=== PATIENT | female | born 1960 | race Hispanic/Latino ===

== ENCOUNTER 2020-02-22 13:38 | Observation (INO) | payer BC ==
[~2020-02-22] VITALS: Ht 162.6 cm; Wt 56.7 kg
[2020-02-22] MEDS ORDERED: SODIUM CHLORIDE 0.9% 1000ML 1,000 ML IV STA ×2 (14:32→16:24)
[2020-02-22] MEDS ORDERED: ONDANSETRON HCL INJ 2MG/ML 2ML 2 MG/ML VIAL IV NR (14:45)
[2020-02-22 15:24] LABS: BASOPHILS % 1.8 % (0.0-1.0); EOSINOPHILS % 0.6 % (0.0-6.0); HEMATOCRIT 25.9 % (34.2-44.1); HEMOGLOBIN 9.2 g/dL (12.0-16.0); LYMPHOCYTES # (AUTO) 0.4 (1.0-3.2); LYMPHOCYTES % 21.4 % (18.0-39.1); MEAN CORPUSCULAR HEMOGLOBIN 38.5 pg (28-32); MEAN CORPUSCULAR HGB CONC 35.5 g/dL (31-35); MEAN CORPUSCULAR VOLUME 108.4 fL (81-99); MONOCYTES # (AUTO) 0.1 (0.2-0.8); MONOCYTES % 6.5 % (4.4-11.3); NEUTROPHILS # (AUTO) 1.2 (2.1-6.9); NEUTROPHILS % 69.7 % (38.7-80.0); PLATELET COUNT 85 x10e3/uL (140-360); RED BLOOD COUNT 2.39 x10e6/uL (3.6-5.1); RED CELL DISTRIBUTION WIDTH 14.9 % (11.7-14.4)
--- NOTE | 2020-02-22 15:24 | Diagnostic Imaging Report ---
Examination: Single AP view of the chest. COMPARISON: None. INDICATION: Weakness, low blood pressure IMPRESSION: 1. Lines and Tubes: Right upper chest Port-A-Cath, with distal tip projecting in the mid to distal SVC. 2. Lungs are grossly clear. No consolidation or effusion. 3. Cardiomediastinal silhouette is normal. Pulmonary vasculature is normal. 4. No acute bony abnormalities. Signed by: Dr. Tee Fair M.D. on 02/22/2020 3:21 PM
[2020-02-22 15:38] LABS: INR 0.86; PARTIAL THROMBOPLASTIN TIME 26.6 seconds (23.8-35.5); PROTHROMBIN TIME 12.2 seconds (11.9-14.5)
[2020-02-22 15:46] LABS: ALANINE AMINOTRANSFERASE 18 IU/L (0-55); ALBUMIN 3.9 g/dL (3.5-5.0); ALBUMIN/GLOBULIN RATIO 1.3 (0.8-2.0); ALKALINE PHOSPHATASE 71 IU/L (40-150); ANION GAP 15.5 mmol/L (8-16); BLOOD UREA NITROGEN 11 mg/dL (7-26); BUN/CREATININE RATIO 15 (6-25); CALCIUM 9.2 mg/dL (8.4-10.2); CARBON DIOXIDE 25 mmol/L (22-29); CHLORIDE 90 mmol/L (98-107); CREATINE KINASE 17 IU/L (29-168); CREATININE, SERUM 0.75 mg/dL (0.57-1.11); EST GLOMERULAR FILTRATION RATE > 60 ML/MIN (60-); GLUCOSE 96 mg/dL (74-118); MAGNESIUM 1.4 MG/DL (1.3-2.1); POTASSIUM 3.5 mmol/L (3.5-5.1); SODIUM 127 mmol/L (136-145)
[2020-02-22] MEDS ORDERED: ONDANSETRON HCL INJ 2MG/ML 2ML 2 MG/ML VIAL IV PRN (16:45)
[2020-02-22] MEDS: SODIUM CHLORIDE 0.9% 1000ML 1,000 ML IV SCH (16:45)
[2020-02-22] MEDS ORDERED: ACETAMINOPHEN 325 MG TAB PO PRN (16:45)
[2020-02-22 16:55] LABS: CLARITY,URINE CLEAR (CLEAR); COLOR,URINE YELLOW (YELLOW); LEUKOCYTE ESTERASE ,URINE TRACE (NEGATIVE); NITRITE,URINE NEGATIVE (NEGATIVE); PROTEIN,URINE DIPSTICK NEGATIVE (NEGATIVE)
--- OUTSIDE RECORDS SUMMARY | 2020-02-22 16:55 | XMS REPORT ---
Author Author [facility] Organization [facility] Address Unknown Phone Unavailable Care Team Providers [facility] [employer] Name Role Phone Martin SIMS Unavailable Unavailable EARLINE CUEVAS Unavailable Unavailable Problems This patient has no known problems. Allergies, Adverse Reactions, Alerts This patient has no known allergies or adverse reactions. Medications This patient has no known medications. Results Test Description Test Time Test Comments Text Results Atomic Results Result Comments CHEST SINGLE (PORTABLE) 2020-02-22 15:21:00 [place] [id number] Patient Name: MI DEMPSEY MR #: [id number] : 1960 Age/Sex: 59/F Req #: [id number] Adm Physician: Ordered by: DAYSI POSADA READING INTERVENTION TEACHER Report #: [id number] Location: ER Room/Bed: Procedure: [id number] DX/CHEST SINGLE (PORTABLE) Exam Date: 02/22/20 Exam Time: 1512 REPORT STATUS: Signed Examination: Single AP view of the chest. COMPARISON: None. INDICATION: Weakness, low blood pressure IMPRESSION: 1. Lines and Tubes: Right upper chest Port-A-Cath, with distal tip projecting in the mid to distal SVC. 2. Lungs are grossly clear. No consolidation or effusion. 3. Cardiomediastinal silhouette is normal. Pulmonary vasculature is normal. 4. No acute bony abnormalities. Signed by: Dr. Modesta Fair M.D. on 02/22/2020 3:21 PM Dictated By: MODESTA FAIR MD 20 Transcribed By: DENNIS on 02/22/201520 COPY TO: DAYSI POSADA READING INTERVENTION TEACHER ANG, TUNNEL CATH CENTRAL INS W/PORT C 2019-10-29 11:03:00 Re ason for Exam:- >CARANOMA OF LEFT BREAST FINAL REPORT HIS TORY: Breast cancer PROCEDURE: Following informed written consent, the patient's right cervical region and anterior chest wall were prepped draped in the usual sterile manner and maximum sterile barrier techniques were utilized. 2% lidocaine was given locally for anesthesia. Additionally, the patient received 1 mg IV Versed and 50 mcg IV fentanyl for conscious sedation and pain control. Vital signs were monitored and remained stable. Conscious sedation and continuous patient monitoring were performed by the attending radiologist and a registered nurse for approximately 30 minutes during the procedure. Access was gained to the right internal jugular vein using ultrasound guidance a micropuncture needle. A short transverse incision was made in the right anterior chest wall. Using blunt dissection, a subcutaneous pocket was created just beneath the incision. A Bard power injectable ragini catheter was tunneled from the pocket to the jugular access site in place through a peel-away sheath into position centrally under fluoroscopic control. The catheter was cut to appropriate length and attached to the portacatheter reservoir which was subsequently buried in the subcutaneous. The pocket was irrigated using an antibiotic solution enclosed using 3-0 Monocryl resorbable suture. Steri-Strips, dermabond and a sterile bandage were applied. There were no immediate complications. Patient was discharged from the department in stable condition. FINDINGS: Spot film of the chest following portacatheter placement demonstrates the portacatheter to lie in expected positi on with its tip over the caval atrial junction. There is no pneumothorax. Ultrasound image obtained prior to port placement demonstrates a patent and compressible right internal jugular vein without evidence for thrombosis. Ultrasound image of the right internal jugular vein was obtained and archived on PACs. IMPRESSION: 1. Successful uncomplicated placement of a right internal jugular chest port. Fluoroscopy time: 0.2 minutesEstimated dose in (Ka,r): 2 mGy Signed: Reggie Rey Verified Date/Time: 10/29/2019 11:03:30 Reading Location: [facility] Radiology Reading Room /APTT 2019-10-29 08:46:00 PROTIME (BEAKER) (test code = 759) 10.6 sec 9.3-12.0 INR (BEAKER) (test code = 370) 1.0 <=5.9 PARTIAL THROMBOPLASTIN TIME (BEAKER) (test code = 760) 28.5 sec 23.0-35.0 RECOMMENDED COUMADIN/WARFARIN INR THERAPY RANGESSTANDARD DOSE: 2.0 - 3.0 Inclu arvind: PROPHYLAXIS for venous thrombosis, systemic embolization; TREATMENT for terry ous thrombosis and/or pulmonary embolus.HIGH RISK: Target INR is 2.5-3.5 for pat ients with mechanical heart valves.Final Information (Auto Output)Final Informat ion (Auto Output)Final Information (Auto Output)
[2020-02-22 16:56] LABS: BILIRUBIN,URINE NEGATIVE (NEGATIVE); KETONES,URINE NEGATIVE (NEGATIVE); URINE UROBILINOGEN 1 mg/dL (0.2 - 1)
[2020-02-22 17:05] LABS: BACTERIA,URINE FEW /HPF; EPITHELIAL CELLS,URINE MANY /LPF; RBC,URINE 0-5 /HPF (0-5)
--- NOTE | 2020-02-22 17:28 | Diagnostic Imaging Report ---
History:Dizziness and headaches Comparison studies: None Technique: Axial images were obtained from the skull base to the vertex. Coronal and sagittal images reconstructed from the axial data. Dose modulation, iterative reconstruction, and/or weight based adjustment of the mA/kV was utilized to reduce the radiation dose to as low as reasonably achievable. Intravenous contrast: None Findings: Scalp/skull: Focal right superficial periorbital swelling is not associated with an underlying fracture or abnormalities in the right orbit. No additional abnormalities. Extra-axial spaces: No masses. No fluid collections. Brain sulci: Mildly prominent. Ventricles: Mild compensatory dilatation. No hydrocephalus. Parenchyma: Subtle hypodensities in the supratentorial white matter are small vessel ischemic changes. No masses, hemorrhage, acute or chronic cortical vascular insults. Sellar/suprasellar region: No abnormalities. Craniocervical junction: Patent foramen magnum. No Chiari one malformation. Incidental findings: Atherosclerotic calcifications in the carotid siphons . Impression: 1. Focal right periorbital superficial swelling. No fractures. 2. No acute intracranial abnormalities. Chronic findings: 1. Mild generalized volume loss. 2. Mild supratentorial white matter small vessel ischemic changes. Signed by: Dr. Abel Gusman M.D. on 02/22/2020 5:24 PM
--- NOTE | 2020-02-22 17:41 | Diagnostic Imaging Report ---
History: Dizziness Comparison studies: None Technique: Axial images were obtained through the cervical region.. Coronal and sagittal images reconstructed from the axial data. Dose modulation, iterative reconstruction, and/or weight based adjustment of the mA/kV was utilized to reduce the radiation dose to as low as reasonably achievable. Intravenous contrast: None Findings: Fractures: None. Soft tissues: No gross abnormalities. Atlantoaxial articulation: Intact. Alignment: Reversal of the usual lordosis is centered at C5-6.. No scoliosis. Cervicomedullary junction: No abnormalities. The foramen magnum is patent. Vertebrae: No infection or neoplasm. Degenerative changes: * Mildly degenerated disc at C5-6. * Patent spinal canal in spite of a disc osteophyte complex at C5-6. * Foraminal stenosis, mild left at C3-4 due to facet arthrosis, moderate right at C5-6 due to facet and uncoarthrosis. Incidental partially visualized right subclavian catheter. IMPRESSION: 1. No acute abnormalities. 2. Specifically, no fractures or subluxations. 3. Cannot adequately evaluate for ligament, spinal cord and or vascular abnormalities. 4. Degenerative changes as described. Signed by: Dr. Abel Gusman M.D. on 02/22/2020 5:38 PM
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
[2020-02-22 18:17] VITALS: BP 125/62
--- NOTE | 2020-02-22 18:22 | NUR ---
PATIENT ARRIVED TO UNIT AT APPROXIMATELY 1807. CURRENTLY RESTING IN BED WATCHING TELEVISION. AAOX3. ACYANOTIC. NO DISTRESS NOTED. DRESSING NOTED ON RIGHT LATERAL SIDE OF FACE NEAR RIGHT EYE. SMALL AMT OF BLOOD NOTED. NO ACTIVE BLEEDING AT THIS TIME. PATIENT REPORTS HEADACHE AND REQUESTING TYLENOL AT THIS TIME. BED LOW. SIDE RAILS UP X2. CALL LIGHT IN REACH. INSTRUCTED TO USE CALL LIGHT FOR ASSISTANCE BEFORE GETTING OUT OF BED. VERBALIZED UNDERSTANDING. FALLS RISK BAND PLACED ON PATIENT.
[2020-02-22 18:36] VITALS: BP 125/62
[2020-02-22] MEDS ORDERED: AMLODIPINE BESY10 MG PO (19:55)
[2020-02-22 20:00] VITALS: BP 101/53
[2020-02-22 20:09] VITALS: BP 101/53
--- NOTE | 2020-02-22 20:10 | NUR ---
PATIENT RESTING IN BED AOX4, NO SIGNS OF DISTRESS NOTED. IV FLUIDS ARE RUNNING AT ORDERED RATE AND PATIENT VOICES NO PAIN AT THIS TIME. ABRASION NOTED ABOVE THE RIGHT EYE, DRESSING IS CLEAN, DRY, AND INTACT. BED IS IN LOWEST POSITION, BOTH SIDE RAILS ARE UP, CALL LIGHT IS WITHIN EASY REACH, WILL CONTINUE TO MONITOR. Addendum: 02/22/20 at 2050 by Bertin Brito RN PATIENT INSTRUCTED TO CALL FOR ASSISTANCE FOR BATHROOM PRIVILEGES.
[2020-02-23 00:33] VITALS: BP 106/57
[2020-02-23] MEDS: SODIUM CHLORIDE 0.9% 1000ML 1,000 ML IV SCH (03:44)
[2020-02-23 04:54] VITALS: BP 105/58
--- NOTE | 2020-02-23 07:22 | NUR ---
ASSUMED CARE. PATIENT RESTING IN BED. AAOX3. ACYANOTIC. NO DISTRESS NOTED. BED LOW. SIDE RAILS UP X2. CALL LIGHT IN REACH.
[2020-02-23 07:35] LABS: ANION GAP 11.7 mmol/L (8-16); BLOOD UREA NITROGEN < 5 mg/dL (7-26); CALCIUM 8.1 mg/dL (8.4-10.2); CARBON DIOXIDE 24 mmol/L (22-29); CHLORIDE 101 mmol/L (98-107); CREATININE, SERUM 0.47 mg/dL (0.57-1.11); EST GLOMERULAR FILTRATION RATE > 60 ML/MIN (60-); GLUCOSE 86 mg/dL (74-118); SODIUM 134 mmol/L (136-145)
[2020-02-23 07:36] LABS: BUN/CREATININE RATIO 11 (6-25)
[2020-02-23 07:37] LABS: POTASSIUM 2.7 mmol/L (3.5-5.1)
[2020-02-23] MEDS ORDERED: MAGNESIUM SULFATE 2GM/50ML 50 ML IV ONE (07:45)
[2020-02-23] MEDS ORDERED: POTASSIUM CHLORIDE 20 MEQ TAB CR PO SCH ×2 (07:45→09:45)
[2020-02-23 07:58] LABS: B-TYPE NATRIURETIC PEPTIDE2 30.1 pg/mL (0-100); THYROID STIMULATING HORMONE 2.328 uIU/mL (0.350-4.940)
[2020-02-23 08:00] VITALS: BP 102/55
[2020-02-23 08:15] VITALS: BP 102/55
[2020-02-23 08:58] LABS: BASOPHILS % 0.9 % (0.0-1.0); EOSINOPHILS % 1.8 % (0.0-6.0); HEMOGLOBIN 7.7 g/dL (12.0-16.0); LYMPHOCYTES # (AUTO) 0.3 (1.0-3.2); LYMPHOCYTES % 29.1 % (18.0-39.1); MEAN CORPUSCULAR HEMOGLOBIN 38.1 pg (28-32); MEAN CORPUSCULAR HGB CONC 34.7 g/dL (31-35); MEAN CORPUSCULAR VOLUME 109.9 fL (81-99); MONOCYTES % 20.9 % (4.4-11.3); NEUTROPHILS # (AUTO) 0.5 (2.1-6.9); NEUTROPHILS % 46.4 % (38.7-80.0); PLATELET COUNT 74 x10e3/uL (140-360); RED BLOOD COUNT 2.02 x10e6/uL (3.6-5.1); RED CELL DISTRIBUTION WIDTH 14.7 % (11.7-14.4)
[2020-02-23 08:59] LABS: MONOCYTES # (AUTO) 0.2 (0.2-0.8)
[2020-02-23 09:08] LABS: HEMATOCRIT 22.2 % (34.2-44.1)
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
[2020-02-23 10:09] LABS: FERRITIN 1256.56 ng/mL (4.63-204.00)
[2020-02-23] MEDS ORDERED: FILGRASTIM 300 MCG/ML VIAL SC NR ×2 (10:30→14:30)
[2020-02-23 10:45] LABS: EOSINOPHILS % (MANUAL) 1 % (0-7); LYMPHOCYTES % (MANUAL) 26 % (19-48); MONOCYTES % (MANUAL) 18 % (3.4-9.0); NEUTROPHILS % (MANUAL) 55 % (40-74); PLATELET ESTIMATE MODERATELY DECREASED; PLATELET MORPHOLOGY COMMENT NORMAL
[2020-02-23 12:16] VITALS: BP 106/57
--- NOTE | 2020-02-23 15:27 | NUR ---
PATIENT SIGNED DISCHARGE PAPERWORK AT APPROXIMATELY 1450. AAOX3. ACYANOTIC. SITTING IN CHAIR AT BEDSIDE WAITING ON RIDE FROM HOSPITAL. NO DISTRESS NOTED.
--- NOTE | 2020-02-23 21:07 | Discharge Summary ---
FINAL DIAGNOSIS: Dehydration with hypotension. SECONDARY DIAGNOSES: 1. Pancytopenia including neutropenia after chemotherapy. 2. Hyponatremia, resolved. 3. Breast cancer. CONSULTANTS: Dr. Ratliff, hematology/Oncology. PROCEDURES/STUDIES PERFORMED: Head CT and spine CT were unremarkable. HISTORY: Per H and P. HOSPITAL COURSE: The patient was aggressively hydrated. Her Norvasc was held. Her tachycardia improved. She feels much better. Her hyponatremia has improved as well. Her hypokalemia was repleted along with her hypomagnesemia. The patient's repeat absolute neutrophil count was 500. She will get a dose of Neupogen before discharge. The patient will follow up with Erica tomorrow for her repeat blood. The patient was told to continue to hold her Norvasc unless her blood pressure is really high. The patient was seen and examined today. CONDITION ON DISCHARGE: Improved. DISCHARGE MEDICATIONS: Please see medication reconciliation form. MD ORESTES Huntley/MAEVE /[id number]
== END 2020-02-23 15:38 | disposition home or self-care (01) ==
LOC: FSED 13:38 → ERHOLD 16:34 → MED/SURG 18:07
PROVIDERS: ADMIT Internal Medicine; ATTEND Internal Medicine
DX: E86.0 Dehydration (principal); R53.1 Weakness; D70.1 Agranulocytosis secondary to cancer chemotherapy; T45.1X5A Adverse effect of antineoplastic and immunosuppressive drugs, initial encounter; I10 Essential (primary) hypertension; E11.9 Type 2 diabetes mellitus without complications; Z96.60 Presence of unspecified orthopedic joint implant; W18.30XA Fall on same level, unspecified, initial encounter; Y93.9 Activity, unspecified; Y92.231 Patient bathroom in hospital as the place of occurrence of the external cause; R55 Syncope and collapse; S00.91XA Abrasion of unspecified part of head, initial encounter; E87.1 Hypo-osmolality and hyponatremia; S00.93XA Contusion of unspecified part of head, initial encounter; C50.919 Malignant neoplasm of unspecified site of unspecified female breast; I95.9 Hypotension, unspecified; D61.818 Other pancytopenia
CPT/HCPCS: 36415 ×2; 70450; 71045; 72125; 80048; 80053; 81001; 82533; 82550; 82553; 82607; 82728; 83036; 83540; 83735; 83880; 84443; 84466; 84484; 85025 ×2; 85045; 85610; 85730; 87086; 93005; 99284; G0378 ×2; J1442; J3475; J7030 ×2; J2405